=== PATIENT | female | born 1985 | race Caucasian/White ===

== ENCOUNTER 2019-02-14 13:55 | Emergency (ER) | payer BC ==
[~2019-02-14] VITALS: Ht 170.2 cm; Wt 74.8 kg
[2019-02-14 13:59] VITALS: BP_SYST 146
--- NOTE | 2019-02-14 14:07 | NUR ---
Patient is awake, alert, and oriented x4. Patient states she was vomiting on Thursday after having 5 beers, it stopped Thursday, started again today. Patient reports abdominal pressure pain 8/10 mostly in left upper quadrant.
--- NOTE | 2019-02-14 14:09 | NUR ---
Patient to ER bed 6 to gown for evaluation. Side rails up. Report given to Malcolm PINEDA.
--- NOTE | 2019-02-14 14:11 | NUR ---
ER at bedside examining patient.
[2019-02-14] MEDS ORDERED: ONDANSETRON HCL 4 MG/2 ML VIAL IVP ONE (14:15)
[2019-02-14] MEDS ORDERED: KETOROLAC TROMETHAMINE 30 MG VIAL IVP ONE (14:15)
[2019-02-14] MEDS ORDERED: LORazepam 2 MG/ML VIAL (FOR ER USE) IVP ONE (14:30)
[2019-02-14 14:34] LABS: BASOPHILS # (AUTO) 0.1 K/uL (0.0-0.2); BASOPHILS % (AUTO) 0.5 % (0.0-2.0); EOSINOPHILS # (AUTO) 0.1 K/uL (0.0-0.4); EOSINOPHILS % (AUTO) 0.6 % (0.0-4.0); HEMATOCRIT 40.6 % (36-48); HEMOGLOBIN 13.4 g/dL (12.0-16.0); LYMPHOCYTES # (AUTO) 1.9 K/uL (1.0-5.5); MEAN CORPUSCULAR HEMOGLOBIN 29 pg (27-31); MEAN CORPUSCULAR HGB CONC 33 % (32-36); MEAN CORPUSCULAR VOLUME 89 fL (79.0-98.0); MONOCYTES # (AUTO) 0.5 K/uL (0.0-1.0); MONOCYTES % (AUTO) 5.2 % (1.7-9.3); NEUTROPHILS # (AUTO) 7.9 K/uL (1.8-7.7); NEUTROPHILS % (AUTO) 75.7 % (40.0-70.0); PLATELET COUNT (AUTO) 242 K/uL (130-430); RED BLOOD CELL COUNT(AUTO) 4.59 MIL/uL (4.2-6.2); RED CELL DISTRIBUTION WIDTH 14.8 % (9.0-15.0); WHITE BLOOD COUNT (AUTO) 10.4 K/uL (4.8-10.8)
[2019-02-14 14:48] LABS: CALCIUM 9.4 mg/dL (8.4-11.0); CREATININE 0.71 mg/dL (0.55-1.30); POTASSIUM 3.5 mmol/L (3.5-5.1)
[2019-02-14 14:53] LABS: ALBUMIN 4.2 g/dL (3.4-4.8); TOTAL BILIRUBIN 0.5 mg/dL (0.0-1.0)
--- NOTE | 2019-02-14 15:57 | NUR ---
Patient given written and verbal discharge instructions and verbalizes understanding. ER MD discussed with patient the results and treatment provided. Patient in stable condition. ID arm band removed. IV catheter removed intact and dressing applied, no active bleeding. Rx of zofran, ativan given. Patient educated on pain management and to follow up with PMD. Pain Scale 0/10. Opportunity for questions provided and answered. Medication side effect fact sheet provided.
[2019-02-14 15:58] VITALS: BP_SYST 125
== END 2019-02-14 15:58 | disposition home or self-care (01) ==
LOC: SED 13:55
DX: K29.00 Acute gastritis without bleeding (principal); F41.9 Anxiety disorder, unspecified
CPT/HCPCS: 36415; 80053; 81025; 83690; 85025; 96374; 96375; 99283; J1885; J2060; J2405